=== PATIENT | female | born 1950 | race Caucasian/White ===

== ENCOUNTER 2021-10-14 07:46 | Outpatient (CLI) | payer MEDICARE, SELFPAY ==
--- NOTE | 2021-10-14 08:00 | ECG_ITS ---
Measurements Intervals [place] Rate: 67 P: 14 FL: 162 QRS: 18 QRSD: 78 T: 34 QT: 383 QTc: 404 Interpretive Statements SINUS RHYTHM VENTRICULAR PREMATURE COMPLEX DELAYED PRECORDIAL R/S TRANSITION BORDERLINE ST-T WAVE ABNORMALITY- HIGH LATERAL LEADS BASELINE ARTIFACT- I, II, III, AVR, AVL, AVF BORDERLINE ECG Electronically Signed On 10-14-2021 8:24:17 TRAVEL GUIDE by Fuentes Montilla D.O.
[2021-10-14 08:50] LABS: Alanine Aminotransferase 24 U/L (4-35); Albumin Level 4.2 g/dL (3.5-5.1); Alkaline Phosphatase 96 U/L (38-126); Amylase 91 U/L (30-110); Aspartate Amino Transferase 30 U/L (14-36); Bilirubin,Total 0.4 mg/dL (0.2-1.3); Lipase 84 U/L (23-300)
== END 2021-10-14 07:47 | disposition home or self-care (01) ==
LOC: ANHSURGERY 07:51
PROVIDERS: PCP Family Medicine; Visit Provider Surgery
DX: K80.20 Calculus of gallbladder without cholecystitis without obstruction (principal); Z01.818 Encounter for other preprocedural examination; R94.31 Abnormal electrocardiogram [ECG] [EKG]
CPT/HCPCS: 36415; 80076; 82150; 83690; 86850; 86900; 86901; 93005

== ENCOUNTER 2021-10-18 01:27 | Day surgery (SDC) | payer MEDICARE, SELFPAY ==
[2021-10-07 14:21] VITALS: BMI 31.6
--- NOTE | 2021-10-07 14:36 | PC.NURSE ---
Report to the Outpatient Waiting Room, entrance under the green pavilion located off [facility], at time _1000_ on date _10/18/21__. OR Time: __1200___. - You and your visitor will be asked a series of questions to screen for COVID 19 for your protection. - A mask is required within the hospital. - Only one visitor is allowed at this time. Patient visitors will be guided where to wait when not with patient. Preoperative COVID Testing Requirements: No COVID Test needed if: (proof is required; if not received patient will have Rapid Test prior to entry) - Patient has received COVID Vaccine at least 14 days prior to procedure date or - Patient has positive COVID test result within last 90 days of surgery date. COVID Test needed if above criteria is not met If not COVID vaccinated a COVID test must be conducted within 72 hours of surgery and patient is asked to isolate self from time of testing until procedure. You will go to the [facility] for your COVID testing. The [facility] is located at the corner of [address] [facility]. You will only be called if COVID results are positive and your surgeon may reschedule your elective surgery date. Patients may have clear liquids (water, carbonated beverages, clear teas, apple juice) until 3 hours prior to surgery (0900 AM) with a maximum of 20 ounces. - No food from midnight until time of surgery - Infants may have breast milk until 4 hours before surgery, infant formula 6 hours prior to surgery. - Children will be allowed to drink immediately following surgery. If applicable, please bring a bottle or sippy cup to assist with drinking. Juice, water, soda, and popsicles are readily available. For infants on formula, please bring formula the day of surgery. Pacifiers are allowed. Take the following medications with a SIP of water the morning of surgery: NONE Medications to discontinue per physician ___ALL VITAMINS/SUPPLEMENTS Date to take last dose____10/14/21 Please no make-up, nail swiss, hairspray, perfume, deodorant, or body powder the day of surgery. No jewelry (including any body piercings) or valuables the day of surgery, leave them at home. Please take a shower or bath the night before, or the morning of, surgery with an antibacterial soap. Wear comfortable, loose fitting clothing. Children are encouraged to wear pajamas. - Jewelry must be removed prior to entering the operating room. Rings and piercings that are not removed may be cut off. - The hospital will not accept responsibility for valuables. - Please leave all valuables, including medications, at home the day of surgery. If you are going home after surgery, a licensed bookmobile driver must drive you home. - NO public transportation without another adult. - We recommend that an adult stay with you for 24 hours following discharge. - We also recommend that you do not drive, make important decision, drink alcoholic beverages, or take any drugs that were not prescribed by your health care provider for at least 24 hours after your discharge time. For Pediatric surgeries, we recommend two adults accompany the child home (only one inside the building at this time). Follow any additional instructions given to you from your surgeon. [facility] AM OF SURGERY Telephone instructions given to PT and asked if any additional questions and then verbalized understanding. Patient advised to call surgeon office or pre surgery nurse liaison [phone] if any additional questions.
[2021-10-18] VITALS (9 sets, daily range): BP systolic 121–155; BP diastolic 61–88; PULSE 52–102; RESP 12–16; TEMP 37.1–37.3; O2SAT 95–100
[2021-10-18] MEDS: LACTATED RINGERS 1,000 ML 30 ML IV CONT ×2 (12:26→15:15)
[2021-10-18] MEDS: KETOROLAC 15 MG/ML VIAL (*BKC) IV PUSH (12:27)
[2021-10-18] MEDS: ACETAMINOPHEN 500 MG TABLET 1000 MG PO (12:27)
--- NOTE | 2021-10-18 13:01 | P.PNAN_ITS ---
Anes - Initial Pre Proc Eval Procedure: Operation Date: 10/18/21 14:00 Proposed Procedures p Laparoscopic Cholecystectomy Possible Open - Shlomo Mcintyre DO Date/Time: 10/18/21 13:01 Surgeon: Shlomo Mcintyre DO Pre Op Diagnosis: symptomatic cholelithiasis Patient Data Age: 71 Gender: F Height: 1.64 m Weight: 85 kg Last Vital Signs Temp 37.3 C 10/18/21 11:38 Pulse 77 10/18/21 11:38 Resp 16 10/18/21 11:38 BP 155/88 H 10/18/21 11:38 Pulse Ox 100 10/18/21 11:38 Allergies Allergy/AdvReac Type Severity Reaction Status Date / Time oxycodone Allergy Unknown Nausea Verified 10/07/21 14:19 codeine Allergy Nausea Verified 10/07/21 14:19 Home Medications Medication Instructions Recorded Confirmed Type aspirin 81 mg chewable tablet 81 mg PO DAILY 11/26/20 10/07/21 History cholecalciferol (vitamin D3) 1,250 1,250 mcg PO WEEKLY 09/16/21 10/07/21 History mcg (50,000 unit) capsule multivitamin 1 tablet PO DAILY 09/16/21 10/07/21 History niacin 50 mg tablet 50 mg PO DAILY 09/16/21 10/07/21 History psyllium husk 3.4 gram/5.4 gram 1 tbsp PO TID g 09/16/21 10/07/21 History oral powder Patient hx anesthesia problems: none Family hx anesthesia problems: none Results Review: All pre-operative results and documents have been reviewed as part of the pre-operative evaluation. [facility] Past Medical History Medical History High cholesterol Surgical History Surgical History History of left hip replacement 11/2017 History of partial hysterectomy 11/1987 History of right hip replacement 11/2018 Family History Family History Father Hypertension Lung cancer Mother Hypertension Lung cancer Myocardial infarct Other Brain cancer Diabetes mellitus Heart disease Social History Social History Smoking status: Never smoker Second hand tobacco smoke exposure: No Alcohol intake: current Alcohol use details: Socially Substance use: never Substance use type: does not use Living arrangements: with family Spiritual care concerns: No Anes - Eval Final PreProcedure Day of Procedure 10/18/21 13:01 Patient weight: obese Heart: regular rate and rhythm Lungs: clear to auscultation and normal air movement Airway: Mallampati scale class II Neurological: alert and oriented Last oral intake: >/= 8 hours ASA classification: II Emergent: no Anesthetic plan: proceed Anesthesia type and monitoring: general ETT and standard monitoring Results Review: All pre-operative results and documents have been reviewed as part of the pre-operative evaluation. Informed Consent: The patient's anesthetic plan and its attendant risks and benefits were discussed with the patient/family/POA. Questions were solicited and answers provided to the satisfaction of the patient/family/POA.
--- NOTE | 2021-10-18 13:58 | WPDHPUPDATE1 ---
History and Physical Update Update Date/Time: 10/18/21 13:58 History and Physical has been reviewed, including an updated exam of the patient. There are NO changes in the patient's condition. Risks, benefits, and alternatives have been discussed and questions answered. Patient agrees to proceed with procedure.
--- NOTE | 2021-10-18 13:58 | PM.IMHP ---
H&P: HPI History of Present Illness Date/Time: 10/18/21 13:58 Chief Complaint: Symptomatic cholelithiasis Narrative: This is a 71-year-old woman who presents for laparoscopic cholecystectomy. She was seen in the office a month ago. She denies any changes since last seen in the office. Review of Systems Review of Systems: All systems reviewed & are unremarkable except as noted in HPI and below Constitutional: Constitutional: Denies chills, Denies fever(s), Denies headache(s) and Denies weight loss Eyes: Eyes: Denies change in vision ENT: Denies dizziness, Denies headache(s), Denies neck mass and Denies throat swelling Cardiovascular: Cardiovascular: Denies chest pain, Denies lightheadedness and Denies dyspnea Respiratory: Respiratory: Denies cough, Denies dyspnea and Denies wheezing Gastrointestinal: Gastrointestinal: Denies abdominal pain, Denies change in bowel habits, Denies nausea and Denies vomiting Genitourinary: Genitourinary: Denies hematuria and Denies dysuria Musculoskeletal: Musculoskeletal: Reports as per HPI Integumentary/Breasts: Skin/Breast: Reports as per HPI Neurologic: Denies dizziness and Denies headache(s) Allergic/Immunologic: Allergic/Immunologic: Denies throat swelling and Denies wheezing PMF Past Medical History Medical History High cholesterol Surgical History Surgical History History of left hip replacement 11/2017 History of partial hysterectomy 11/1987 History of right hip replacement 11/2018 Family History Family History Father Hypertension Lung cancer Mother Hypertension Lung cancer Myocardial infarct Other Brain cancer Diabetes mellitus Heart disease Social History Social History Smoking status: Never smoker Second hand tobacco smoke exposure: No Alcohol intake: current Alcohol use details: Socially Substance use: never Substance use type: does not use Living arrangements: with family Spiritual care concerns: No Meds Home Medications and Allergies Home Medications Medication Instructions Recorded Confirmed Type aspirin 81 mg chewable tablet 81 mg PO DAILY 11/26/20 10/07/21 History cholecalciferol (vitamin D3) 1,250 1,250 mcg PO WEEKLY 09/16/21 10/07/21 History mcg (50,000 unit) capsule multivitamin 1 tablet PO DAILY 09/16/21 10/07/21 History niacin 50 mg tablet 50 mg PO DAILY 09/16/21 10/07/21 History psyllium husk 3.4 gram/5.4 gram 1 tbsp PO TID g 09/16/21 10/07/21 History oral powder Allergies Allergy/AdvReac Type Severity Reaction Status Date / Time oxycodone Allergy Unknown Nausea Verified 10/07/21 14:19 codeine Allergy Nausea Verified 10/07/21 14:19 Vital Signs Vital Signs - 24 hr 10/18/21 11:38 Temperature 37.3 C Pulse Rate 77 Respiratory Rate 16 Blood Pressure 155/88 H Pulse Oximetry 100 Exam Const: General: no acute distress and alert Orientation/consciousness: patient oriented x3 HENMT: Head: normocephalic and atraumatic Ears: hearing grossly normal bilaterally General nose exam: Normal nares present Mouth: Yes Normal oral and palatal mucosa present Eyes: Periorbital: periorbital findings normal Sclera: sclerae normal EOM: EOMs intact bilaterally Neck: Neck: normal visual inspection, no lymphadenopathy and trachea midline Chest: Chest palpation & inspection: normal inspection of the chest Resp: Effort & Inspection: normal respiratory effort Auscultation: clear to auscultation bilaterally Cardio: Jugular venous distension: no JVD Rate: regular rate Rhythm: regular rhythm Heart sounds: S1 normal heart sound present and S2 normal heart sound present Peripheral pulses: Peripheral pulses 2+ throughout GI: Inspection: normal to inspection GI Palp:
[2021-10-18] MEDS: ceFAZolin 2 GM/D5W 50 ML 2 GM/50 ML BAG IVPB (14:13)
[2021-10-18] MEDS: BUPIVACAINE HCL 0.5% PF 30 ML VIAL INFILTRATE (15:03)
--- NOTE | 2021-10-18 15:14 | W.PM.PROC2 ---
Procedure Note - Detailed Date of Procedure 10/18/21 Pre-op Diagnosis symptomatic cholelithiasis Post-op Diagnosis same Procedure Performed Laparoscopic Cholecystectomy Surgeon Shlomo Mcintyre, DO Anesthesia general and local (0.5% bupivacaine) Indications This is a 71-year-old woman who presents with upper abdominal pain that she has been experiencing intermittently for the past several years. She had presented to an outside facility emergency department and workup showed evidence of cholelithiasis. She was then seen in the office and discussions were made with the patient about treatment options. Decision was made to proceed with laparoscopic cholecystectomy, possible open. Findings Laparoscopic cholecystectomy was performed. The gallbladder was somewhat dilated and there were a few pericholecystic adhesions. The cystic duct appeared normal in size. The gallbladder was removed and sent to the lab for pathology. There were several stones within the gallbladder lumen. Description of Procedure Procedure as well as risks, benefits, and alternatives were discussed with patient. Written consent was obtained and placed in chart prior to procedure. The patient was brought back to surgical suite. Patient was placed in supine position on operating table. Time-out was done to confirm patient and procedure. Patient was then intubated by the anesthesia department. Abdomen was prepped and draped in sterile fashion using chlorhexidine prep. 0.5% bupivacaine with epinephrine was infiltrated at each site of incision. A 5 millimeter incision was made near the umbilicus, and a 5 millimeter Optiview trocar was advanced through the abdominal layers under direct visualization. Once inside the abdominal cavity, carbon dioxide was insufflated to create a pneumoperitoneum. The camera was inserted and the abdomen was inspected. No immediate abnormalities were identified. The patient was placed in reverse Trendelenburg position and rotated slightly to the left. An 11 millimeter incision was made in the subxiphoid region, and an 11 millimeter trocar was inserted under direct visualization. Two 5 millimeter incisions were made in the right upper quadrant, and two 5 millimeter trocars were inserted under direct visualization. The gallbladder was identified and grasped at the fundus and retracted superiorly. It was then grasped at the infundibulum retracted laterally. Careful dissection around the neck of the gallbladder was performed using blunt dissection with a [place] grasper and hook electrocautery. The cystic duct was identified, and a window was created behind it. The cystic artery was also identified and a window was created behind it. The critical view of safety was identified, visualizing the cystic duct running directly into the neck of the gallbladder, and the cystic artery running directly into the wall of the gallbladder. A 5 millimeter clip system safety engineer was then used to place 2 clips proximally and 1 clip distally on both the cystic duct and cystic artery. They were then both transected using endoscopic scissors. Once safely away from the alexia hepatitis, the gallbladder was dissected free from the liver bed using hook electrocautery. Hemostasis was achieved along the way. The gallbladder was removed completely and then removed through the subxiphoid port. The liver bed was then inspected. Hemostasis appeared adequate, and our clips appeared secure. The area was gently irrigated with sterile saline. No other abnormalities were seen. The patient was flattened out in bed, and 1 final inspection was made around the abdominal cavity. The subxiphoid port was removed, and a Jonny Mona cone was used to approximate the fascia with an 0-Vicryl simple interrupted suture. The remaining ports were then removed under direct visualization, the camera was removed, and the pneumoperitoneum was released. The skin of the incisions was approximated using 4-0 Monocryl
[2021-10-18] MEDS: ONDANSETRON INJ 4 MG/2 ML VIAL IV PUSH (17:15)
== END 2021-10-18 17:28 | disposition home or self-care (01) ==
PROVIDERS: PCP Family Medicine; Visit Provider Surgery
PROC: 0FT44ZZ Resection of Gallbladder, Percutaneous Endoscopic Approach (ICD-10-PCS; CPT 47562; principal; 2021-10-18 14:00)
DX: K80.10 Calculus of gallbladder with chronic cholecystitis without obstruction (principal); R10.9 Unspecified abdominal pain; K66.0 Peritoneal adhesions (postprocedural) (postinfection); E78.00 Pure hypercholesterolemia, unspecified; Z79.82 Long term (current) use of aspirin; E66.9 Obesity, unspecified; Z68.31 Body mass index [BMI] 31.0-31.9, adult
CPT/HCPCS: 47562; 36415; 80076; 82150; 83690; 86850; 86900; 86901; 88304; 93005; A9270; J0690; J1100; J1170; J1885; J2250; J2405; J2704; J2710; J3010; J7030; J7120